=== PATIENT | male | born 1950 | race Caucasian/White ===

== ENCOUNTER → 2018-05-05 13:34 | Outpatient (CLI) | payer MEDICARE, OTHER, SELFPAY | PROVIDERS: Family Provider Internal Medicine; Visit Provider Physician Assistant | DX: N30.01 Acute cystitis with hematuria (principal) | CPT/HCPCS: 87086 ==

== ENCOUNTER → 2018-05-17 14:30 | Outpatient (CLI) | payer MEDICARE, OTHER, SELFPAY ==
[2018-05-17 15:21] LABS: Bacteria Urine None Seen; RBC Urine None Seen (0-5/HPF); WBC Urine None Seen (0-5/HPF)
[2018-05-17 15:32] LABS: Appearance Urine UA CLEAR; Bilirubin Urine UA NEGATIVE (NEGATIVE); Color Urine UA YELLOW; Glucose Urine UA NEGATIVE (Normal); Ketones Urine UA NEGATIVE (NEGATIVE); Leukocyte Esterase Urine UA NEGATIVE (NEGATIVE); Nitrite Urine UA Negative (Negative); Occult Blood Urine UA NEGATIVE (Negative); Protein Urine UA NEGATIVE (Negative); Specific Gravity Urine UA <=1.005 (1.000-1.035); Urobilinogen Urine UA 0.2 E.U./dL (0.2)
[2018-05-17 15:42] LABS: Urine Comments Microscopic Normal
[2018-05-17 15:43] LABS: Culture Indicated Urine Cult Not Indicated
[2018-05-17 17:54] LABS: Urine Chlamydia NOT DETECTED; Urine N gonorrhoeae NOT DETECTED
== END ==
PROVIDERS: Visit Provider Internal Medicine
DX: N36.8 Other specified disorders of urethra (principal)
CPT/HCPCS: 81001; 87491; 87591

== ENCOUNTER → 2019-06-12 08:46 | Outpatient (CLI) | payer MEDICARE, OTHER, SELFPAY ==
--- NOTE | 2019-06-12 | DI.RAD.S_ITS ---
PROCEDURE: XR THORACIC SPINE 3V INDICATIONS: Strain of muscle and tendon of unspecified wall of thorax, i TECHNIQUE: Abbott views of the thoracic spine were acquired. COMPARISON: None. FINDINGS: Bones: No dislocations. On the lateral view there are 2 compression fractures that are moderate in severity and likely acute, at T7 and T10. No additional prior compression fractures would be suspected. No comparisons are available to establish chronicity. No suspicious bony lesions. 12 pairs of ribs are noted, and appear intact where visualized. The maximal vertebral height reduction at T7 is 40.5% and at T10 is 53.9% in Soft tissues: No paravertebral stripe thickening. IMPRESSION: T7 and T10 to acute or subacute compression fractures with 40.5% maximal height reduction at T7 and 53.9% maximal height reduction at T10. The exact chronicity cannot be established by this study. Followup MR scanning may be warranted depending on the clinical status. Dictated by: Carlin Muro M.D. on 06/12/2019 at 9:16 Approved by: Carlin Muro M.D. on 06/12/2019 at 9:20
== END ==
PROVIDERS: PCP Internal Medicine; Visit Provider Internal Medicine
DX: S29.019A Strain of muscle and tendon of unspecified wall of thorax, initial encounter (principal); M48.54XA Collapsed vertebra, not elsewhere classified, thoracic region, initial encounter for fracture
CPT/HCPCS: 72072

== ENCOUNTER → 2019-06-20 14:43 | Outpatient (CLI) | payer MEDICARE, OTHER, SELFPAY | PROVIDERS: PCP Internal Medicine; Visit Provider Internal Medicine | DX: M81.0 Age-related osteoporosis without current pathological fracture (principal); S22.070A Wedge compression fracture of T9-T10 vertebra, initial encounter for closed fracture; S22.060A Wedge compression fracture of T7-T8 vertebra, initial encounter for closed fracture | CPT/HCPCS: 77080 ==

== ENCOUNTER → 2019-07-18 07:52 | Outpatient (CLI) | payer MEDICARE, OTHER, SELFPAY ==
[2019-07-18 09:37] LABS: Cholesterol 173 mg/dL (140-199); HDL Cholesterol 76 mg/dL (40-60); LDL Cholesterol Calculated 84 mg/dL (<100); Triglycerides 64 mg/dL (35-150)
[2019-07-22 15:31] LABS: Parathyroid Hormone Int 44 pg/mL (14-64)
== END ==
PROVIDERS: PCP Internal Medicine; Visit Provider Internal Medicine
DX: E78.2 Mixed hyperlipidemia (principal); E21.3 Hyperparathyroidism, unspecified
CPT/HCPCS: 36415; 80061; 83970

== ENCOUNTER → 2020-05-27 08:12 | Outpatient (CLI) | payer MEDICARE, OTHER, SELFPAY ==
--- NOTE | 2020-05-27 08:13 | DI.MRI.S_ITS ---
PROCEDURE: MR ANGIO NECK W CON INDICATIONS: Visual aura increasing frequency; neurological changes TECHNIQUE: Axial and sagittal TruFISP through the neck. Coronal dynamic MRA after the administration of contrast in the arterial and venous phases, with rotating 3-dimensional maximum intensity projection (MIP) reformats constructed from subtraction images. COMPARISON: [facility], , MR ANGIO HEAD WO CON, 05/27/2020, 8:38. FINDINGS: Image quality: Excellent. Carotid system: Great vessels demonstrate a conventional anatomy as they arise from the aortic arch. The origins of the common carotid arteries appear normal. The calibers and courses of the common carotid arteries are likewise normal. The carotid bifurcations appear normal bilaterally. The internal carotid arteries are widely patent up to the [place]. Posterior circulation: The origins of the vertebral arteries are unremarkable. The left vertebral artery is dominant to the right. The more superior portions of the vertebral arteries demonstrate normal course and caliber. Vertebral arteries join to form a normal appearing basilar artery. Miscellaneous: Subclavian arteries are patent throughout. Pre-contrast images through the neck demonstrate no soft tissue abnormalities. IMPRESSION: Within the arteries of the neck, no hemodynamically significant stenosis can be seen. Any quantitative measurements of stenosis were performed using NASCET criteria. Dictated by: Bret Main M.D. on 05/27/2020 at 9:02 Approved by: Bret Main M.D. on 05/27/2020 at 9:02
--- NOTE | 2020-05-27 08:13 | DI.MRI.S_ITS ---
PROCEDURE: MR ANGIO HEAD WO CON INDICATIONS: visual aura increasing frequency; neurological changes TECHNIQUE: Noncontrast axial 3-D [id number] MR angiogram, with 3-dimensional maximum intensity projection (MIP) reformats of the internal carotid arteries and posterior circulation then performed. COMPARISON: [facility], , MR ANGIO NECK W CON, 05/27/2020, 8:47. FINDINGS: Image quality: Excellent. Anterior circulation: Intracranial internal carotid arteries demonstrate normal size and intraluminal flow signal, although bilateral symmetric signal dropout can be seen within the intracranial internal carotid arteries. These areas appear normal on the accompanying contrast-enhanced neck MR angiogram. There is a diminutive right A1 segment, with a corresponding robust left A1 segment. This is considered to be a normal developmental variant of the [place], of typically no clinical consequence. The flow within the paired anterior cerebral arteries is otherwise normal and symmetric. The flow within the middle cerebral arteries is normal and symmetric. The anterior communicating artery is seen. No stenoses, occlusions, or aneurysms. Posterior circulation: Visualized portions of the vertebral arteries demonstrate normal caliber, and join to form a normal appearing basilar artery. The left vertebral artery is dominant to the right. The flow within the posterior cerebral arteries is normal and symmetric. No stenoses, occlusions, or aneurysms. IMPRESSION: No significant intracranial arterial abnormality is seen. Dictated by: Bret Main M.D. on 05/27/2020 at 8:59 Approved by: Bret Main M.D. on 05/27/2020 at 9:02
== END ==
PROVIDERS: PCP Student in an Organized Health Care Education/Training Program; Referring Provider Student in an Organized Health Care Education/Training Program; Visit Provider Student in an Organized Health Care Education/Training Program
DX: H53.9 Unspecified visual disturbance (principal); R51 Headache
CPT/HCPCS: 70544; 70548; A9579

== ENCOUNTER → 2021-01-28 10:07 | Outpatient (CLI) | payer MEDICARE, OTHER, SELFPAY ==
--- NOTE | 2021-01-28 10:09 | DI.CT.S_ITS ---
PROCEDURE: CT ABDOMEN PELVIS WO CON INDICATIONS: 70-year-old male with right inguinal recurrent pain status post surgical inguinal hernia repair 2018 TECHNIQUE: Noncontrast 5 mm thick sections acquired from the diaphragms to the symphysis. 5 mm coronal and sagittal reformats were then performed. For radiation dose reduction, the following was used: automated exposure control, adjustment of mA and/or kV according to patient size. COMPARISON: None. FINDINGS: Lower thorax: The lung bases are clear. Heart size normal. No hiatal hernia. Liver: Normal in size and attenuation. No contour deformity present. Biliary system: No calcified cholelithiasis or pericholecystic inflammation. No intra or extrahepatic bile duct dilatation. Pancreas: Unremarkable without mass or inflammation evident. Spleen: Normal in size and density. Adrenals: Normal morphology and density. Reproductive system: Unremarkable as visualized. Urinary system: Normal renal size and attenuation. 3 cm simple left renal cyst noted. No renal calculi, hydronephrosis, or solid mass present. Urinary bladder is distended. Gastrointestinal system: Moderate fecal debris throughout the colon. No evidence of obstruction. Appendix: Normal appendix identified. No evidence of appendicitis. Peritoneal spaces: No intra- or retroperitoneal adenopathy. No free air. No free fluid. Vasculature: The IVC, aorta and iliac vasculature are unremarkable. Musculoskeletal: Normal bone mineralization. No acute fractures. Suture repair of previous right inguinal hernia is intact without evidence of recurrent or residual hernia bilaterally. There is suture noted in the left inguinal canal as well. IMPRESSION: 1. No evidence of recurrence or residual inguinal hernia. Prior inguinal hernia repairs intact. 2. Moderate fecal debris throughout the colon without evidence of obstruction. Dictated by: Bruce Nick M.D. on 01/28/2021 at 9:32 Approved by: Bruce Nick M.D. on 01/28/2021 at 9:48
== END ==
PROVIDERS: PCP Student in an Organized Health Care Education/Training Program; Referring Provider Student in an Organized Health Care Education/Training Program; Visit Provider Student in an Organized Health Care Education/Training Program
DX: R10.31 Right lower quadrant pain (principal); Z98.890 Other specified postprocedural states
CPT/HCPCS: 74176

== ENCOUNTER → 2022-06-12 09:26 | Outpatient (CLI) | payer MEDICARE, OTHER, SELFPAY ==
--- NOTE | 2022-06-12 09:28 | DI.RAD.S_ITS ---
PROCEDURE: XR THORACIC SPINE 3V INDICATIONS: Reassess previous fx and new low back pain TECHNIQUE: 3 views of the thoracic spine were acquired. COMPARISON: [facility], CT, CT ABDOMEN PELVIS WO CON, 01/28/2021, 10:16. [facility], CR, XR THORACIC SPINE 3V, 06/12/2019, 8:49. FINDINGS: Bones: There are 12 pairs of ribs. Trace dextroconvex thoracic spinal curvature. Evaluation is motion degraded. Similar appearance of T7 and T10 height loss compared to 2019. There is new height loss of the T12 vertebral body, approximately 50 percent. Soft tissues: No paravertebral stripe thickening. IMPRESSION: New height loss of the T12 vertebral body compared to [address] CT, approximately 50 percent, otherwise age indeterminate. Lumbar spine findings are separately dictated. Similar height loss of T7 and T10. Consider MRI to further evaluate if necessary. Dictated by: Robb Tovar M.D. on 06/12/2022 at 11:36 Approved by: Robb Tovar M.D. on 06/12/2022 at 11:39
--- NOTE | 2022-06-12 09:28 | DI.RAD.S_ITS ---
PROCEDURE: XR LUMBAR SPINE 2-3V INDICATIONS: Reassess previous fx and new low back pain TECHNIQUE: 3 views of the lumbar spine were acquired. COMPARISON: [facility], CT, CT ABDOMEN PELVIS WO CON, 01/28/2021, 10:16. FINDINGS: Bones: There are 5 lumbar type vertebral bodies. Trace levoconvex spinal curvature. No spondylolisthesis. Minimal endplate deformities are age indeterminate. Mild to moderate overall spondylosis. Thoracic spine findings are separately dictated. Soft tissues: Overlying bowel gas pattern is normal. No suspicious soft tissue calcifications. IMPRESSION: [id number] spondylosis. Minimal endplate deformities are age indeterminate, possibly related to degeneration. Consider MRI to further evaluate if necessary. Dictated by: Robb Tovar M.D. on 06/12/2022 at 11:34 Approved by: Robb Tovar M.D. on 06/12/2022 at 11:36
== END ==
PROVIDERS: PCP Student in an Organized Health Care Education/Training Program; Referring Provider Student in an Organized Health Care Education/Training Program; Visit Provider Student in an Organized Health Care Education/Training Program
DX: M54.59 Other low back pain (principal); S22.060A Wedge compression fracture of T7-T8 vertebra, initial encounter for closed fracture; S22.070A Wedge compression fracture of T9-T10 vertebra, initial encounter for closed fracture; M47.816 Spondylosis without myelopathy or radiculopathy, lumbar region; G47.61 Periodic limb movement disorder
CPT/HCPCS: 36415; 72072; 72100; 83540; 83550

== ENCOUNTER → 2022-06-12 09:35 | Outpatient (CLI) | payer MEDICARE, OTHER, SELFPAY ==
[2022-06-12 12:01] LABS: Iron 129 ug/dL (49-181)
[2022-06-12 12:07] LABS: HEMOLYSIS 61 (0-50)
[2022-06-12 12:12] LABS: Percent Iron Saturation 34 % (20-50); Total Iron Binding Capacity 374 ug/dL (261-462); Transferrin 280 mg/dL (206-381)
== END ==
PROVIDERS: PCP Student in an Organized Health Care Education/Training Program; Referring Provider Student in an Organized Health Care Education/Training Program; Visit Provider Student in an Organized Health Care Education/Training Program
DX: G47.61 Periodic limb movement disorder (principal)
CPT/HCPCS: 36415; 83540; 83550

== ENCOUNTER → 2022-06-15 09:51 | Outpatient (CLI) | payer MEDICARE, OTHER, SELFPAY ==
--- NOTE | 2022-06-15 09:53 | DI.US.S_ITS ---
PROCEDURE: US RENAL COMPLETE INDICATIONS: Urinary retention TECHNIQUE: Real-time scanning was performed of the kidneys and bladder, with image documentation. [facility], CT, CT ABDOMEN PELVIS WO CON, 01/28/2021, 10:16. SON: FINDINGS: Kidneys: Kidneys are normal in size. Right kidney measures 10.4 cm long; left kidney measures 9.7 cm long. Right renal cortical thickness is 0.9 cm; left renal cortical thickness is 1.1 cm. Renal cortical echotexture is normal. No hydronephrosis. No suspicious solid mass lesions. A 4 mm echogenic shadowing focus at the interpolar region of the left kidney is most likely a nonobstructing calculus. There is a 1.2 x 1.2 x 0.9 cm probable cyst at the superior pole of left kidney that is poorly visualized. at a 2.8 x 1.9 x 2.6 cm simple cyst is seen at the inferior pole of the left kidney. Bladder: Pre-void bladder volume is 792 mL. Post-void residual is 667 mL. Pre-void images demonstrate no intraluminal masses or stones. Miscellaneous: No free pelvic fluid. IMPRESSION: 1. Large postvoid residual bladder volume of 667 mL. 2. No hydronephrosis. 3. Suspected 4 mm calculus versus echogenic sinus fat at the interpolar region of the left kidney. 4. Left renal cysts do not appear significantly changed when compared to the CT from 01/28/2021. Dictated by: Felix Colon M.D. on 06/15/2022 at 15:05 Approved by: Felix Colon M.D. on 06/15/2022 at 15:10
== END ==
PROVIDERS: PCP Student in an Organized Health Care Education/Training Program; Referring Provider Student in an Organized Health Care Education/Training Program; Visit Provider Student in an Organized Health Care Education/Training Program
DX: R33.9 Retention of urine, unspecified (principal); Q61.02 Congenital multiple renal cysts
CPT/HCPCS: 76770

== ENCOUNTER → 2022-06-26 14:49 | Outpatient (CLI) | payer MEDICARE, OTHER, SELFPAY | PROVIDERS: PCP Student in an Organized Health Care Education/Training Program; Referring Provider Student in an Organized Health Care Education/Training Program; Visit Provider Student in an Organized Health Care Education/Training Program | DX: M81.0 Age-related osteoporosis without current pathological fracture (principal); M84.40XA Pathological fracture, unspecified site, initial encounter for fracture | CPT/HCPCS: 77080 ==

== ENCOUNTER → 2025-06-18 08:25 | Outpatient (CLI) | payer MEDICARE, OTHER, SELFPAY ==
[2025-06-18 08:50] LABS: Add Manual Diff / Slide Review NO; Hematocrit 41.9 % (41-53); Hemoglobin 14.3 g/dL (13.5-17.5); Lymphocytes Absolute Auto 2500 /uL (1100-4500); Mean Corpuscular HGB Conc 34.0 % (30-36); Mean Corpuscular Hemoglobin 32.3 PG (26-34); Mean Corpuscular Volume 94.8 fL (80-100); Platelet Count 259 X10^3/uL (150-400)
[2025-06-18 09:12] LABS: Alanine Aminotransferase 22 IU/L (<50); Albumin 4.4 g/dL (3.5-5.0); Albumin Globulin Ratio 1.4 (1.0-2.8); Alkaline Phosphatase 84 U/L (38-126); Blood Urea Nitrogen 18 mg/dL (9-20); Calcium 9.3 mg/dL (8.4-10.2); Carbon Dioxide 25 mmol/L (22-32); Chloride 100 mmol/L (98-107); Cholesterol 162 mg/dL (140-199); Estimated Glomerular Filt Rate > 60 mL/min (>60); Globulin 3.2 g/dL (1.7-4.1); Glucose 85 mg/dL (70-99); HDL Cholesterol 87 mg/dL (40-60); HEMOLYSIS < 15 (0-50); Potassium 4.4 mmol/L (3.4-5.1); Sodium 134 mmol/L (137-145); Total Protein 7.6 g/dL (6.3-8.2); Triglycerides 58 mg/dL (35-150)
[2025-06-18 09:29] LABS: Free T4, Direct Thyroxine 1.61 ng/dL (0.78-2.19)
[2025-06-18 09:42] LABS: Prostate Specific Antigen 0.437 ng/mL (0.10-4.00)
[2025-06-18 09:43] LABS: Thyroid Stimulating Hormone 2.95 uIU/mL (0.47-4.68)
== END ==
PROVIDERS: PCP Family Medicine; Referring Provider Family Medicine; Visit Provider Family Medicine
DX: E78.5 Hyperlipidemia, unspecified (principal); N40.1 Benign prostatic hyperplasia with lower urinary tract symptoms; G62.89 Other specified polyneuropathies; N13.8 Other obstructive and reflux uropathy; Z12.5 Encounter for screening for malignant neoplasm of prostate; Z13.0 Encounter for screening for diseases of the blood and blood-forming organs and certain disorders involving the immune mechanism; Z13.29 Encounter for screening for other suspected endocrine disorder
CPT/HCPCS: 36415; 80053; 80061; 84153; 84439; 84443; 85025